=== PATIENT | male | born 1975 | race Caucasian/White ===

== ENCOUNTER 2020-10-03 09:53 | Emergency (ER) | payer OTHER ==
[~2020-10-03] VITALS: Ht 188 cm; Wt 102.1 kg
== END 2020-10-03 11:33 | disposition home or self-care (01) ==
LOC: ER 09:53
DX: T15.92XA Foreign body on external eye, part unspecified, left eye, initial encounter (principal); X58.XXXA Exposure to other specified factors, initial encounter
CPT/HCPCS: 99282; A9270

== ENCOUNTER → 2023-06-11 | Outpatient (CLI) | payer OTHER | END | disposition home or self-care (01) | LOC: LAB SHORT 19:00 → LAB 19:00 | DX: K21.9 Gastro-esophageal reflux disease without esophagitis (principal) | CPT/HCPCS: 87338 ==

== ENCOUNTER 2024-11-09 10:45 | Emergency (ER) | payer OTHER ==
[~2024-11-09] VITALS: Ht 188 cm; Wt 104.3 kg
[2024-11-09 10:51] VITALS: BP 139/97
[2024-11-09] MEDS ORDERED: CYCL10 PO (11:57)
[2024-11-09] MEDS ORDERED: ACETAMINOPHEN500 MG PO (11:57)
== END 2024-11-09 13:00 | disposition home or self-care (01) ==
LOC: ER 10:45
DX: S16.1XXA Strain of muscle, fascia and tendon at neck level, initial encounter (principal); V43.92XA Unspecified car occupant injured in collision with other type car in traffic accident, initial encounter; Z88.6 Allergy status to analgesic agent
CPT/HCPCS: 72125; A9270